=== PATIENT | male | born 1990 | race Caucasian/White ===

== ENCOUNTER 2023-05-14 12:36 | Emergency (ER) | payer BC, OTHER ==
[2023-05-14] MEDS ORDERED: Lidocaine 4% Top Soln 50 ML Bottle MUCMEM STA (15:17)
[2023-05-14] MEDS ORDERED: Benzocaine 20% Topical Spray UD MUCMEM ONE (15:34)
== END 2023-05-14 17:00 | disposition home or self-care (01) ==
LOC: MW.ED 12:36
DX: K04.7 Periapical abscess without sinus (principal); Z88.0 Allergy status to penicillin
CPT/HCPCS: 41800; 99282; A9270; 99283